=== PATIENT | female | born 1950 | race African-American/Black ===

== ENCOUNTER 2018-11-07 12:52 | Emergency (ER) | payer MEDICARE, MEDICAID ==
[~2018-11-07] VITALS: Ht 160 cm; Wt 52.0 kg
[2018-11-07] MEDS ORDERED: KETOROLAC 60MG/2ML VIAL IM ONE (14:15)
[2018-11-07 15:48] VITALS: BP 133/66
== END 2018-11-07 16:19 | disposition home or self-care (01) ==
LOC: ER 12:52
DX: S20.219A Contusion of unspecified front wall of thorax, initial encounter (principal); M19.90 Unspecified osteoarthritis, unspecified site; Z88.4 Allergy status to anesthetic agent; V43.12XA Car passenger injured in collision with other type car in nontraffic accident, initial encounter; Y93.89 Activity, other specified; Y92.89 Other specified places as the place of occurrence of the external cause; Y99.8 Other external cause status
CPT/HCPCS: 71045; 93005; 96372; 99283; J1885

== ENCOUNTER → 2020-02-24 | Outpatient (CLI) | payer MEDICARE, MEDICAID | END | disposition home or self-care (01) | LOC: NM 09:04 | PROVIDERS: ATTEND Internal Medicine Endocrinology, Diabetes & Metabolism | DX: E04.9 Nontoxic goiter, unspecified (principal); E05.90 Thyrotoxicosis, unspecified without thyrotoxic crisis or storm | CPT/HCPCS: 78014; A9516 ==